=== PATIENT | male | born 1970 | race Caucasian/White ===

== ENCOUNTER → 2023-01-25 | Outpatient (CLI) | payer OTHER ==
--- NOTE | 2023-01-25 14:45 | XR ---
EXAMINATION TYPE: XR knee 4V RT DATE OF EXAM: 01/25/2023 2:34 PM INDICATION: Patient age:Male; 52 years old; Reason for study: S83.8X2A SPRAIN OF OTHER SPECIFIED PARTS OF LEFT K; PHH. COMPARISON: None. TECHNIQUE: The Right knee(s) was examined in Frontal, lateral and oblique projections. FINDINGS: No evidence of any acute osseous pathology or soft tissue swelling. Small suprapatellar j oint effusion. No significant joint space narrowing or spurring noted. Incidental fabella. IMPRESSION: 1. No acute fracture or dislocation. 2. Small suprapatellar joint effusion.
== END | disposition home or self-care (01) ==
LOC: RADXRMAIN 14:09
PROVIDERS: ATTEND Emergency Medicine
DX: S83.8X2A Sprain of other specified parts of left knee, initial encounter (principal); M25.461 Effusion, right knee; X58.XXXA Exposure to other specified factors, initial encounter

== ENCOUNTER → 2023-12-07 | Outpatient (CLI) | payer OTHER ==
[2023-12-07 15:10] LABS: Basophils # (A) 0.05 X 10*3/uL (0.00-0.10); Basophils % (A) 0.6 %; Eosinophils # (A) 0.31 X 10*3/uL (0.04-0.35); Eosinophils % (A) 3.5 %; Lymphocytes % (A) 26.9 %; MCH 29.4 pg (27.0-32.0); MCHC 32.6 g/dL (32.0-37.0); MCV 90.2 FL (80.0-97.0); Mean Platelet Volume 9.8 FL (9.5-12.2); Monocytes % (A) 10.1 %; NRBC Per 100 WBC 0 X 10*3/uL (0.00-0.01); Neutrophils # (A) 5.19 X 10*3/uL (1.80-7.70); Neutrophils % (A) 58.1 %; Platelet Count 313 X 10*3/uL (140-440); RDW 12.9 % (11.5-14.5); WBC 8.92 X 10*3/uL (4.50-10.00)
[2023-12-07 16:11] LABS: Chol/HDL Ratio 5.14 Ratio; Glucose 90 mg/dL (70-110)
[2023-12-07 16:12] LABS: ALT 30 U/L (10-49); AST 23 U/L (14-35); Albumin 4.1 g/dL (3.8-4.9); Albumin/Globulin Ratio 1.58 Ratio (1.60-3.17); Alkaline Phosphatase 77 U/L (41-126); Calcium 9.1 mg/dL (8.7-10.3); Chloride 102 mmol/L (96-109); Globulin 2.6 g/dL (1.6-3.3); Potassium 4.3 mmol/L (3.5-5.5); Prostate Specific Antigen 0.69 ng/mL (0.000-3.500); Sodium 138 mmol/L (135-145); T4, Free (Free Thyroxine) 0.92 ng/dL (0.80-1.80); Total Bilirubin 0.2 mg/dL (0.3-1.2); Total Protein 6.7 g/dL (6.2-8.2)
== END | disposition home or self-care (01) ==
LOC: LABWHC1 10:58
PROVIDERS: ATTEND Internal Medicine Geriatric Medicine
DX: N40.0 Benign prostatic hyperplasia without lower urinary tract symptoms (principal); I10 Essential (primary) hypertension; E78.2 Mixed hyperlipidemia; R73.9 Hyperglycemia, unspecified
CPT/HCPCS: 36415; 80053; 80061; 83036; 84153; 84439; 84443; 85025